=== PATIENT | female | born 1985 | race Caucasian/White ===

== ENCOUNTER 2016-07-25 20:37 | Emergency (ER) | payer MEDICAID, OTHER ==
[2016-07-25 20:50] VITALS: BP 130/59
--- NOTE | 2016-07-25 21:58 | UC ---
Respiratory Complaint HPI - HPI Summary HPI Summary: SEVERAL WEEKS OF SINUS PRESSURE, COUGH, CONGESTION. WAS NOT AWARE OF ELEVATED TEMP. NO N/V/D. ALSO HAS AN ITCHY RASH LEFT UPPER ARM FOR 3 DAYS. HAS BEEN AROUND A LOT OF DOGS RECENTLY. - History of Current Complaint Chief Complaint: UCRespiratory Stated Complaint: SINUS PAIN,CONGESTION,COUGH Time Seen by Provider: 07/25/16 21:47 Hx Obtained From: Patient Hx Last Menstrual Period: 3 WEEKS AGO (HAS IUD) Onset/Duration: Gradual Onset, Lasting Weeks, Still Present Timing: Constant Severity Initially: Moderate Severity Currently: Moderate Pain Intensity: 7 Pain Scale Used: 0-10 Numeric Character: Cough: Nonproductive Aggravating Factors: Nothing Alleviating Factors: Nothing Associated Signs And Symptoms: Positive: URI, Nasal Congestion, Hoarseness, Sinus Discomfort. Negative: Dyspnea, Wheezing, Hemoptysis, Dizziness - Allergies/Home Medications Allergies/Adverse Reactions: Allergies Allergy/AdvReac Type Severity Reaction Status Date / Time No Known Allergies Allergy Verified 07/25/16 20:50 Home Medications: Home Medications Cholecalciferol TAB* [Vitamin D TAB*] 1,000 unit PO DAILY 07/25/16 [History Confirmed 07/25/16] Melatonin PRN 07/25/16 [History] Pseudoephedrine TAB* [Sudafed TAB*] PRN 07/25/16 [History] Vitamin B Complex TAB* [Complex B-100*] 1 tab PO DAILY 07/25/16 [History Confirmed 07/25/16] PMH/Surg Hx/FS Hx/Imm Hx Endocrine History Of: Denies: Diabetes Cardiovascular History Of: Denies: Hypertension, Pacemaker/ICD Respiratory History Of: Reports: Asthma - A CHILD GI/ History Of: Denies: Renal Disease Other History Of: Negative For: Anticoagulant Therapy - Surgical History Surgical History: Yes Surgery Procedure, Year, and Place: EAR TUBES, ADDENOIDECTOMY - Family History Known Family History: Positive: Cardiac Disease - [place] - DAD - Social History Alcohol Use: Occasionally Substance Use Type: Marijuana Substance Use Comment - Amount & Last Used: OCCASIONAL Smoking Status (MU): Current Every Day Smoker Type: Cigarettes Amount Used/How Often: 1/2 PPD Length of Time of Smoking/Using Tobacco: 20 years Have You Smoked in the Last Year: Yes - Immunization History Most Recent Tetanus Shot: unknown Review of Systems Constitutional: Fever Skin: Rash ENT: Ear Ache, Nasal Discharge Respiratory: Cough Cardiovascular: Negative Gastrointestinal: Negative All Other Systems Reviewed And Are Negative: Yes Physical Exam Triage Information Reviewed: Yes Appearance: Well-Appearing, No Pain Distress, Well-Nourished Vital Signs: Initial Vital Signs Temp 100.3 F 07/25/16 20:46 Pulse 85 07/25/16 20:46 Resp 16 07/25/16 20:46 BP 130/59 07/25/16 20:46 Pulse Ox 100 07/25/16 20:46 Vital Signs Reviewed: Yes Eyes: Positive: Conjunctiva Clear ENT: Positive: Hearing grossly normal, Pharynx normal, Other: - LEFT TM NORMAL. RIGHT TM SCLEROTIC Neck: Positive: Supple, Nontender, Enlarged Nodes @ - SPFL CERVICAL LAD Respiratory Exam: Normal Cardiovascular Exam: Normal Abdomen Description: Positive: Soft Musculoskeletal: Positive: No Edema Neurological: Positive: Alert Psychological: Positive: Age Appropriate Behavior Skin: Positive: rashes - PINPOINT PAPULAR RASH POSTERIOR LEFT UPPER ARM UC Diagnostic Evaluation - Laboratory O2 Sat by Pulse Oximetry: 100 Respiratory Course/Dx - Differential Dx/Diagnosis Provider Diagnoses: 1. ACUTE SINUSITIS. 2. CONTACT DERMATITIS Discharge - Discharge Plan Condition: Stable Disposition: HOME Prescriptions: Amoxicillin/Clavulanate TAB* [Augmentin TAB 875*] 875 mg PO BID #19 tab Fluconazole [Diflucan] 1 tab PO ONCE #2 tab Triamcinolone 0.1% CREAM(NF) [Kenalog Cream 0.1%(NF)] 1 applic TOPICAL TID PRN # 1 tube PRN Reason: Itching Patient Education Materials: Contact Dermatitis (ED), Sinusitis (ED) Referrals: Renetta Whiting MD [Primary Care Provider] - If Needed
[2016-07-25] MEDS ORDERED: Amoxicillin/Clavulanate TAB* 875 MG PO ONE ×2 (22:01)
== END 2016-07-25 22:11 | disposition home or self-care (01) ==
LOC: UCEAST 20:37
DX: J01.90 Acute sinusitis, unspecified (principal); L23.81 Allergic contact dermatitis due to animal (cat) (dog) dander; F17.210 Nicotine dependence, cigarettes, uncomplicated
CPT/HCPCS: 99212; A9270-GY; G0463

== ENCOUNTER 2017-12-06 15:37 | Emergency (ER) | payer MEDICAID, OTHER ==
[2017-12-06 15:59] VITALS: BP 116/59
--- NOTE | 2017-12-06 16:03 | UC ---
Skin Complaint HPI - HPI Summary HPI Summary: 32 yo female presents with scattered hives. She tells me that she has had PCN in the past without issue. Two years ago, however, she took amoxicillin and towards the end of the rx developed scattered hives. She tried benadryl and benadryl cream for 2 weeks with no relief. Eventually she was rx'd prednisone po and a steroid cream, which resolved her symptoms. She has not had amoxicillin again until about 1 month ago. Again, around day 5 or 6 of taking amoxicillin she started developing hives - she stopped the amoxicillin and started taking benadryl, but has seen no relief in the last 4 weeks. No getting better or worse. Hives are itchy. Denies fever, chills, sore throat, SOB, chest pain, abdominal pain, n/v. - History of Current Complaint Chief Complaint: UCSkin Time Seen by Provider: 12/06/17 16:03 Stated Complaint: RASH Hx Obtained From: Patient Hx Last Menstrual Period: 11/22/17 Onset/Duration: Sudden Onset Skin Exposure Onset/Duration: Weeks Ago Pain Intensity: 0 Location: Diffuse - Allergy/Home Medications Allergies/Adverse Reactions: Allergies Allergy/AdvReac Type Severity Reaction Status Date / Time No Known Allergies Allergy Verified 12/06/17 16:00 Review of Systems Constitutional: Negative Skin: Rash Eyes: Negative ENT: Negative Respiratory: Negative Cardiovascular: Negative Gastrointestinal: Negative Neurovascular: Negative Neurological: Negative Psychological: Negative All Other Systems Reviewed And Are Negative: Yes PMH/Surg Hx/FS Hx/Imm Hx - Additional Past Medical History Additional PMH: None Previously Healthy: Yes Other History Of: Negative For: Anticoagulant Therapy - Surgical History Surgical History: Yes Surgery Procedure, Year, and Place: EAR TUBES, ADDENOIDECTOMY - Family History Known Family History: Positive: Cardiac Disease - [place] - DAD - Social History Occupation: Employed Full-time Lives: With Family Alcohol Use: Weekly Substance Use Type: Marijuana Substance Use Comment - Amount & Last Used: OCCASIONAL Smoking Status (MU): Heavy Every Day Tobacco Smoker Type: Cigarettes Amount Used/How Often: 1/2 PPD Length of Time of Smoking/Using Tobacco: 20 years Have You Smoked in the Last Year: Yes - Immunization History Most Recent Tetanus Shot: unknown Physical Exam - Summary Physical Exam Summary: GENERAL: NAD. WDWN. No pain distress. SKIN: Scattered hives on b/l arms and legs. No open wounds. No streaking, bleeding, or drainage. NECK: Supple. Nontender. No lymphadenopathy. CHEST: No accessory muscle use. Breathing comfortably and in no distress. CV: Pulses intact NEURO: Alert. CN II-XII grossly intact. PSYCH: Age appropriate behavior. Triage Information Reviewed: Yes Vital Signs: Initial Vital Signs Temp 100.1 F 12/06/17 15:52 Pulse 96 12/06/17 15:52 Resp 16 12/06/17 15:52 BP 116/59 12/06/17 15:52 Pulse Ox 97 12/06/17 15:52 Course/Dx - Course Course Of Treatment: Urticaria - suspect from amoxicillin use. Will rx for prednisone and steroid cream. - Diagnoses Provider Diagnoses: urticaria Discharge - Sign-Out/Discharge Documenting (check all that apply): Patient Departure - Discharge Plan Condition: Stable Disposition: HOME Prescriptions: predniSONE TAB* [Deltasone 20 MG TAB*] 20 mg PO DAILY #11 tab Triamcinolone 0.1% CREAM(NF) [Kenalog Cream 0.1%(NF)] 1 applic TOPICAL BID #1 tube Patient Education Materials: Urticaria (ED) Referrals: Renetta Whiting MD [Primary Care Provider] - Additional Instructions: If you develop a fever, shortness of breath, chest pain, new or worsening symptoms - please call your PCP or go to the ED. - Billing Disposition and Condition Condition: STABLE Disposition: Home
== END 2017-12-06 16:20 | disposition home or self-care (01) ==
LOC: UCEAST 15:37
DX: L50.9 Urticaria, unspecified (principal); Z82.49 Family history of ischemic heart disease and other diseases of the circulatory system; F17.210 Nicotine dependence, cigarettes, uncomplicated
CPT/HCPCS: 99212; G0463

== ENCOUNTER 2018-09-22 21:45 | Emergency (ER) | payer OTHER ==
[2018-09-22 21:56] VITALS: BP 133/74
--- NOTE | 2018-09-22 22:05 | UC ---
Throat Pain/Nasal Jerald HPI - HPI Summary HPI Summary: This patient is a 33-year-old female who presents to the urgent care with chief complaint of sore throat. The patient is been having the symptoms for the last 2 days. She has chills but no fevers. She has no difficulty swallowing and she doesnt have any swelling of the tongue or the lips. She reports that she has had strep pharyngitis in the past and he feels like she is having one now. She has no other complaints - History of Current Complaint Chief Complaint: UCGeneralIllness Stated Complaint: SORE THROAT Time Seen by Provider: 09/22/18 21:47 Hx Obtained From: Patient Hx Last Menstrual Period: 2 weeks Onset/Duration: Gradual Onset Pain Intensity: 8 - Allergies/Home Medications Allergies/Adverse Reactions: Allergies Allergy/AdvReac Type Severity Reaction Status Date / Time No Known Allergies Allergy Verified 09/22/18 21:56 PMH/Surg Hx/FS Hx/Imm Hx Previously Healthy: Yes Other History Of: Negative For: Anticoagulant Therapy - Surgical History Surgical History: Yes Surgery Procedure, Year, and Place: EAR TUBES, ADDENOIDECTOMY - Family History Known Family History: Positive: Cardiac Disease - [place] - DAD - Social History Alcohol Use: Weekly Substance Use Type: Marijuana Substance Use Comment - Amount & Last Used: OCCASIONAL Smoking Status (MU): Heavy Every Day Tobacco Smoker Type: Cigarettes Amount Used/How Often: 1/2 PPD Length of Time of Smoking/Using Tobacco: 20 years Have You Smoked in the Last Year: Yes - Immunization History Most Recent Tetanus Shot: unknown Review of Systems All Other Systems Reviewed And Are Negative: Yes Constitutional: Positive: Chills Skin: Positive: Negative Eyes: Positive: Negative ENT: Positive: Sore Throat Respiratory: Positive: Negative Cardiovascular: Positive: Negative Gastrointestinal: Positive: Negative Genitourinary: Positive: Negative Motor: Positive: Negative Neurovascular: Positive: Negative Musculoskeletal: Positive: Negative Neurological: Positive: Negative Psychological: Positive: Negative Is Patient Immunocompromised?: No Physical Exam - Summary Physical Exam Summary: Vital signs: reviewed General: Patient is comfortable lying in stretcher with no signs of distress HEENT: within normal limits except for swollen tonsils and positive white exudate. Lungs: CTA B/L CVS: S1 & S2 present. No murmurs appreciated. ABDOMEN: Soft, non-tender. No signs of distention. No rebound no guarding, and no masses palpated. Bowel sounds are normal. EXTREMITIES: FROM in all major joints, no edema, no cyanosis or clubbing. NEURO: Alert and oriented x 3. No acute neurological deficits. Speech is normal and follows commands. SKIN: Dry and warm ABDOMEN: Soft, non-tender. No signs of distention. No rebound no guarding, and no masses palpated. Bowel sounds are normal. EXTREMITIES: FROM in all major joints, no edema, no cyanosis or clubbing. NEURO: Alert and oriented x 3. No acute neurological deficits. Speech is normal and follows commands. SKIN: Dry and warm Triage Information Reviewed: Yes Vital Signs: Initial Vital Signs Temp 99.9 F 09/22/18 21:51 Pulse 113 09/22/18 21:51 Resp 17 09/22/18 21:51 BP 133/74 09/22/18 21:51 Pulse Ox 100 09/22/18 21:51 Throat Pain/Nasal Course/Dx - Course Course Of Treatment: Rapid strep positive. The patient will be given a prescription for Augmentin. Patient will be discharged home with follow-up with PCP. - Differential Dx/Diagnosis Provider Diagnosis: Strep pharyngitis Discharge - Sign-Out/Discharge Documenting (check all that apply): Patient Departure All imaging exams completed and their final reports reviewed: No Studies - Discharge Plan Condition: Stable Disposition: HOME Patient Education Materials: Strep Throat (ED) Referrals: Renetta Whiting MD [Primary Care Provider] - Additional Instructions: Take medications as instructed. Follow-up with the primary care physician the next 2 days. Return to the urgent care if symptoms worsen. - Billing Disposition and Condition Condition: STABLE Disposition: Home
[2018-09-22] MEDS ORDERED: Amoxicillin/Clavulanate TAB* 875 MG PO ONE (22:09)
--- NOTE | 2018-09-23 19:28 | UC ---
- Progress Note Progress Note: 09/23/2018 Pt was seen yesterday and Rx Augmentin PO. Pt called back and requested a Rx for Fluconazole PO since she usually gets yeast infection after antibitoic Tx/ A Rx for Fluconazole PO was sent to pharmacy. please call back Pt and inform she can diamond picker Rx. Svetlana Verdugo PA-C Course/Dx - Diagnoses Provider Diagnoses: Strep pharyngitis Discharge - Sign-Out/Discharge Documenting (check all that apply): Post-Discharge Follow Up All imaging exams completed and their final reports reviewed: No Studies - Discharge Plan Condition: Stable Disposition: HOME Prescriptions: Amoxicillin/Clavulanate TAB* [Augmentin TAB 875*] 875 mg PO BID #20 tab Fluconazole 150 MG TAB* [Diflucan 150 MG TAB*] 150 mg PO ED ONCE #1 tablet Patient Education Materials: Strep Throat (ED) Referrals: Renetta Whiting MD [Primary Care Provider] - Additional Instructions: Take medications as instructed. Follow-up with the primary care physician the next 2 days. Return to the urgent care if symptoms worsen. - Billing Disposition and Condition Condition: STABLE Disposition: Home
== END 2018-09-22 22:20 | disposition home or self-care (01) ==
LOC: UCEAST 21:45
DX: J02.0 Streptococcal pharyngitis (principal); F17.210 Nicotine dependence, cigarettes, uncomplicated
CPT/HCPCS: 87651; 99212; A9270-GY; G0463

== ENCOUNTER 2018-10-06 18:03 | Emergency (ER) | payer OTHER ==
[2018-10-06 18:21] VITALS: BP 124/66
--- NOTE | 2018-10-06 18:39 | UC ---
Allergic Reaction HPI - HPI Summary HPI Summary: C/O itching rash starting on the arms and starting to spread. No SOB or throat swelling. Has had rash before with amoxicillin. On amox for strep. - History of Current Complaint Chief Complaint: UCSkin Stated Complaint: HIVES Hx Obtained From: Patient Hx Last Menstrual Period: 10/02/18 ?: No Onset/Duration: Sudden Onset, Lasting Days - 3, Worse Since - today Severity Initially: Mild Severity Currently: Mild Pain Intensity: 0 Location: Diffuse Character: Pruritus Aggravating Factor(s): Nothing Alleviating Factor(s): Nothing Associated Signs And Symptoms: Positive: Rash. Negative: Chest Pain, Cough Wheezing, Diaphoresis, Difficulty Breathing, Hoarseness, Nausea, Syncope, Throat Tightening, Vomiting - Related Hx Possible Reaction To: Medications - amoxicillin - Allergies/Home Medications Allergies/Adverse Reactions: Allergies Allergy/AdvReac Type Severity Reaction Status Date / Time No Known Allergies Allergy Verified 10/06/18 18:17 Home Medications: Home Medications Cetirizine* [ZyrTEC 10 MG TAB*] 10 mg PO DAILY 10/06/18 [History Confirmed 10/06] PMH/Surg Hx/FS Hx/Imm Hx Respiratory History: Asthma Other History Of: Negative For: Anticoagulant Therapy - Surgical History Surgical History: Yes Surgery Procedure, Year, and Place: EAR TUBES, ADDENOIDECTOMY - Family History Known Family History: Positive: Cardiac Disease - [place] - DAD, Other - Cancer - Social History Occupation: Unemployed Lives: With Family Alcohol Use: Occasionally Substance Use Type: None Substance Use Comment - Amount & Last Used: OCCASIONAL Smoking Status (MU): Light Every Day Tobacco Smoker Type: Cigarettes Amount Used/How Often: 1/2 PPD Length of Time of Smoking/Using Tobacco: 20 years Have You Smoked in the Last Year: Yes Cessation Counseling: Patient Advised to Stop - Immunization History Most Recent Tetanus Shot: unknown Review of Systems All Other Systems Reviewed And Are Negative: Yes Skin: Positive: Rash Is Patient Immunocompromised?: No Physical Exam Triage Information Reviewed: Yes Appearance: Well-Appearing, No Pain Distress, Thin Vital Signs: Initial Vital Signs Temp 98.3 F 10/06/18 18:12 Pulse 103 10/06/18 18:12 Resp 16 10/06/18 18:12 BP 124/66 10/06/18 18:12 Vital Signs Reviewed: Yes Eyes: Positive: Conjunctiva Inflamed ENT: Positive: Pharynx normal, TMs normal Neck exam: Normal Respiratory Exam: Normal Cardiovascular Exam: Normal Abdominal Exam: Normal Musculoskeletal Exam: Normal Neurological Exam: Normal Psychological Exam: Normal Skin: Positive: Rashes - erythematous papular rash on the arms with a few spots on the abdomen. Allergic Reaction Course/Dx - Differential Dx/Diagnosis Differential Diagnosis/HQI/PQRI: Anaphylaxis, Erythema Multiforme, Local Allergic Reaction, Urticaria Provider Diagnosis: Penicillin allergy, Allergic reaction caused by a drug Discharge - Sign-Out/Discharge Documenting (check all that apply): Patient Departure All imaging exams completed and their final reports reviewed: No Studies - Discharge Plan Condition: Stable Disposition: HOME Prescriptions: Cefdinir [Cefdinir 300 MG CAP] 300 mg PO BID #10 capsule predniSONE TAB* [Deltasone 20 MG TAB*] 60 mg PO DAILY #18 tab Patient Education Materials: Antibiotic Medication Allergy (ED) Referrals: Renetta Whiting MD [Primary Care Provider] - Additional Instructions: Smoking Cessation Tricks. 1. Cut down by 1 cigarette per day every 2-3 days. Write the number of smokes for that day on the calendar. 2. Identify triggers to smoking: after meals, on the phone, in the car, with coffee, on breaks at work, etc. 3. Formulate a plan with a behavior to replace the smoking. Fireballs in the car , doodle pad on the phone, flavored creamer for the coffee, go for a walk after a meal or on break at work. 4. For stress smokes do deep breathing relaxation. Breath deep in through the nose hold the breath in for a few seconds then breath out slowly through the mouth. - Billing Disposition and Condition Condition: STABLE Disposition: Home
== END 2018-10-06 18:45 | disposition home or self-care (01) ==
LOC: UCEAST 18:03
DX: L27.1 Localized skin eruption due to drugs and medicaments taken internally (principal); T36.0X5A Adverse effect of penicillins, initial encounter; Y92.9 Unspecified place or not applicable; J45.909 Unspecified asthma, uncomplicated; F17.210 Nicotine dependence, cigarettes, uncomplicated
CPT/HCPCS: 99212; G0463

== ENCOUNTER 2018-10-17 11:44 | Emergency (ER) | payer OTHER ==
--- NOTE | 2018-10-17 15:07 | UC ---
Skin Complaint HPI - HPI Summary HPI Summary: 23 yo female presents with hives. She tells me that on 10/06 she was seen for allergic reaction to amoxicillin (hives) and was placed on 60mg of prednisone for 6 days. She completed this, but the hives have not completely gone away. She states she has had this in the past and has required treatment with steroid cream as well. No difficulty breathing, facial/throat swelling. - History of Current Complaint Time Seen by Provider: 10/17/18 15:06 Stated Complaint: HIVES Hx Obtained From: Patient Hx Last Menstrual Period: 10/02/18 Onset/Duration: Sudden Onset Current Severity: None - Allergy/Home Medications Allergies/Adverse Reactions: Allergies Allergy/AdvReac Type Severity Reaction Status Date / Time amoxicillin Allergy Hives Verified 10/17/18 15:01 Home Medications: Home Medications Vitamin B Complex [Super B-50 Complex] 1 tab PO DAILY 10/17/18 [History Confirmed 10/17/18] PMH/Surg Hx/FS Hx/Imm Hx - Additional Past Medical History Additional PMH: Allergies Other History Of: Negative For: Anticoagulant Therapy - Surgical History Surgical History: Yes Surgery Procedure, Year, and Place: EAR TUBES, ADDENOIDECTOMY - Family History Known Family History: Positive: Cardiac Disease - [place] - DAD, Other - Cancer - Social History Lives: With Family Alcohol Use: Occasionally Substance Use Type: None Substance Use Comment - Amount & Last Used: OCCASIONAL Smoking Status (MU): Light Every Day Tobacco Smoker Type: Cigarettes Amount Used/How Often: 1/2 PPD Length of Time of Smoking/Using Tobacco: 20 years Have You Smoked in the Last Year: Yes - Immunization History Most Recent Tetanus Shot: unknown Review of Systems All Other Systems Reviewed And Are Negative: Yes Constitutional: Positive: Negative Skin: Positive: Rash Respiratory: Positive: Negative Cardiovascular: Positive: Negative Neurological: Positive: Negative Psychological: Positive: Negative Physical Exam - Summary Physical Exam Summary: GENERAL: NAD. WDWN. No pain distress. SKIN: Torso, b/l arms, b/l legs with scattered faint urticaria. No edema, warmth , No streaking, bleeding, or drainage. NECK: Supple. Nontender. No lymphadenopathy. CHEST: No accessory muscle use. Breathing comfortably and in no distress. CV: Pulses intact. Cap refill <2seconds NEURO: Alert. PSYCH: Age appropriate behavior. Triage Information Reviewed: Yes Vital Signs: Vital Signs: Temp Pulse Resp BP Pulse Ox 98.8 F 97 18 101/61 100 10/17/18 15:03 10/17/18 15:03 10/17/18 15:03 10/17/18 15:03 10/17/18 15:03 Vital Signs Reviewed: Yes Course/Dx - Course Course Of Treatment: Urticaria. Will rx for a short supply of prednisone in addition to kenalog cream. Advised to take a daily benadryl in addition - Diagnoses Provider Diagnosis: Allergic urticaria Discharge - Sign-Out/Discharge Documenting (check all that apply): Patient Departure All imaging exams completed and their final reports reviewed: No Studies - Discharge Plan Condition: Stable Disposition: HOME Prescriptions: predniSONE TAB* [Deltasone 20 MG TAB*] 20 mg PO DAILY #5 tab Triamcinolone 0.1% CREAM (NF) [Kenalog 0.1% Cream (NF)] 1 applic TOPICAL DAILY # 1 tube Patient Education Materials: Antibiotic Medication Allergy (ED) Referrals: Renetta Whiting MD [Primary Care Provider] - Additional Instructions: If you develop a fever, shortness of breath, chest pain, new or worsening symptoms - please call your PCP or go to the ED immediately. Take a benadryl daily in addition to the prednisone to decrease the reaction - Billing Disposition and Condition Condition: STABLE Disposition: Home
[2018-10-17 15:08] VITALS: BP 101/61
== END 2018-10-17 15:39 | disposition home or self-care (01) ==
LOC: UCEAST 11:44
DX: L50.0 Allergic urticaria (principal); F17.210 Nicotine dependence, cigarettes, uncomplicated; Z88.0 Allergy status to penicillin
CPT/HCPCS: 99212; G0463

== ENCOUNTER 2018-12-14 12:27 | Emergency (ER) | payer OTHER ==
[2018-12-14 12:48] VITALS: BP 119/75
--- NOTE | 2018-12-14 13:11 | UC ---
Ear Complaint HPI - HPI Summary HPI Summary: patient is a 33-year-old female who presents to the urgent care with a chief complaint of left ear pain. She reports that this morning she is knees and since then the patient is having pain. She took one Tylenol or ibuprofen and the symptoms significantly improved. She also reports that she wants a test since the last menstrual cycle it was approximately 4 weeks ago and she cannot find her IUD. She was to schedule to an ultrasound however she was not able to attend. The pain is 1-2 out of 10, no fevers no chills and no other complaints. - History of Current Complaint Chief Complaint: UCEar Stated Complaint: LT EAR PAIN Time Seen by Provider: 12/14/18 12:41 Hx Obtained From: Patient Hx Last Menstrual Period: 3 weeks ago Onset/Duration: Sudden Onset Pain Intensity: 8 - Allergies/Home Medications Allergies/Adverse Reactions: Allergies Allergy/AdvReac Type Severity Reaction Status Date / Time amoxicillin Allergy Hives Verified 12/14/18 12:47 Home Medications: Home Medications Fexofenadine (NF) [Claudine (NF)] 1 tab PO DAILY PRN 12/14/18 [History Confirmed 12/14/18] Ibuprofen 400 mg PO ONCE PRN 12/14/18 [History Confirmed 12/14/18] PMH/Surg Hx/FS Hx/Imm Hx Previously Healthy: Yes Other History Of: Negative For: Anticoagulant Therapy - Surgical History Surgical History: Yes Surgery Procedure, Year, and Place: EAR TUBES, ADDENOIDECTOMY - Family History Known Family History: Positive: Cardiac Disease - [place] - DAD, Other - Cancer - Social History Alcohol Use: Daily Substance Use Type: Marijuana Substance Use Comment - Amount & Last Used: OCCASIONAL Smoking Status (MU): Light Every Day Tobacco Smoker Type: Cigarettes Amount Used/How Often: 1/2 PPD Length of Time of Smoking/Using Tobacco: 20 years Have You Smoked in the Last Year: Yes Household Exposure Type: Cigarettes - Immunization History Most Recent Tetanus Shot: unknown Review of Systems All Other Systems Reviewed And Are Negative: Yes Constitutional: Positive: Negative Skin: Positive: Negative Eyes: Positive: Negative ENT: Positive: Ear Ache Respiratory: Positive: Negative Cardiovascular: Positive: Negative Gastrointestinal: Positive: Negative Genitourinary: Positive: Negative Motor: Positive: Negative Neurovascular: Positive: Negative Musculoskeletal: Positive: Negative Neurological: Positive: Negative Psychological: Positive: Negative Is Patient Immunocompromised?: No Physical Exam - Summary Physical Exam Summary: Vital signs: Reviewed Gen.: Patient is a well developed and nourished female in no acute distress. Patient is sitting comfortably on the stretcher. Head: Normacephalic and atraumatic Eyes: PERRLA, EOMI x2. Ears: Right ear canal and TM WNL Left ear canal and TM WNL Nose Nose with dry mucosa and clear discharge. No sinus tenderness and mouth: no pharyngeal erythema Neck: Supple, no bilateral submandibular and anterior cervical lymphadenopathy. No JVD Lungs: CTA B/L CVS: S1 & S2 present. No murmurs appreciated. ABDOMEN: Soft NT w/ positive BS. EXT: FROM x 4 NEURO: A+O X 3. Triage Information Reviewed: Yes Appearance: Well-Appearing Vital Signs: Initial Vital Signs Temp 100.6 F 12/14/18 12:41 Pulse 96 12/14/18 12:41 Resp 18 12/14/18 12:41 BP 119/75 12/14/18 12:41 Pulse Ox 99 12/14/18 12:41 Vital Signs Reviewed: Yes Ear Complaint Course/Dx - Course Course Of Treatment: test is: Negtive Date ER exam is within normal. Patient is having almost no pain. There is no ear trauma rupture or signs of infection. Therefore I recommend to continue taking Tylenol or ibuprofen for the pain. Patient is hemodynamically stable alert and oriented 3. - Differential Dx/Diagnosis Provider Diagnosis: Earache on left, test negative Discharge - Sign-Out/Discharge Documenting (check all that apply): Patient Departure All imaging exams completed and their final reports reviewed: No Studies - Discharge Plan Condition: Stable Disposition: HOME Patient Education Materials: Earache (ED) Referrals: Renetta Whiting MD [Primary Care Provider] - Additional Instructions: Take medications as instructed Increase your fluid intake F/U with PCP in the next 2-3 days Return to the if symptoms worsen - Billing Disposition and Condition Condition: STABLE Disposition: Home
== END 2018-12-14 14:02 | disposition home or self-care (01) ==
LOC: UCEAST 12:27
DX: H92.02 Otalgia, left ear (principal); F17.210 Nicotine dependence, cigarettes, uncomplicated; Z32.02 Encounter for pregnancy test, result negative
CPT/HCPCS: 81025; 99211; G0463

== ENCOUNTER 2018-12-17 17:43 | Emergency (ER) | payer OTHER ==
--- NOTE | 2018-12-17 18:08 | UC ---
Ear Complaint HPI - HPI Summary HPI Summary: 33 yo female presents with LEFT ear pain. She tells me that she was seen a couple of days ago for the same issue. Since that time she has developed increased pain and has had some drainage from the ear. She has also been having some sinus pain/pressure/congestion - mostly on the left side. She has not been taking anything OTC for her symptoms. No recent swimming. Denies fever, chills, cough, rash. - History of Current Complaint Chief Complaint: UCEar Stated Complaint: LEFT EAR ISSUE Time Seen by Provider: 12/17/18 18:08 Hx Obtained From: Patient Hx Last Menstrual Period: 3 weeks ago Onset/Duration: Gradual Onset Severity Initially: Moderate Severity Currently: Moderate Pain Intensity: 7 Pain Scale Used: 0-10 Numeric - Allergies/Home Medications Allergies/Adverse Reactions: Allergies Allergy/AdvReac Type Severity Reaction Status Date / Time amoxicillin Allergy Hives Verified 12/17/18 18:11 PMH/Surg Hx/FS Hx/Imm Hx - Additional Past Medical History Additional PMH: Seasonal allergies Other History Of: Negative For: Anticoagulant Therapy - Surgical History Surgical History: Yes Surgery Procedure, Year, and Place: EAR TUBES, ADDENOIDECTOMY - Family History Known Family History: Positive: Cardiac Disease - [place] - DAD, Other - Cancer - Social History Lives: With Family Alcohol Use: Daily Substance Use Type: Marijuana Substance Use Comment - Amount & Last Used: OCCASIONAL Smoking Status (MU): Light Every Day Tobacco Smoker Type: Cigarettes Amount Used/How Often: 1/2 PPD Length of Time of Smoking/Using Tobacco: 20 years Have You Smoked in the Last Year: Yes Household Exposure Type: Cigarettes - Immunization History Most Recent Tetanus Shot: unknown Review of Systems All Other Systems Reviewed And Are Negative: Yes Constitutional: Positive: Negative Skin: Positive: Negative Eyes: Positive: Negative ENT: Positive: Ear Ache, Nasal Discharge, Sinus Congestion, Sinus Pain/ Tenderness Respiratory: Positive: Negative Cardiovascular: Positive: Negative Gastrointestinal: Positive: Negative Neurovascular: Positive: Negative Neurological: Positive: Negative Psychological: Positive: Negative Physical Exam - Summary Physical Exam Summary: GENERAL: NAD. WDWN. No pain distress. SKIN: No rashes, sores, lesions, or open wounds. HEENT: Head: AT/NC Eyes: EOM intact. Conjunctiva clear without inflammation or discharge. Ears: Hearing grossly normal. LEFT ear canal with moderate edema and mild yellow/white drainage. TM appears intact. TTP with auricular movement. NTTP mastoid. Right ear and TM WNL. Nose: Nasal mucosa mildly swollen and erythematous without discharge. TTP LEFT maxillary sinus. Positive post nasal drip Throat: Posterior oropharynx without exudates, erythema, or tonsillar enlargement. Uvula midline. NECK: Supple. Nontender. No lymphadenopathy. CHEST: CTAB. No r/r/w. No accessory muscle use. Breathing comfortably and in no distress. CV: RRR. Without m/r/g. Pulses intact. NEURO: Alert. PSYCH: Age appropriate behavior. Triage Information Reviewed: Yes Vital Signs: Vital Signs: Temp Pulse Resp BP Pulse Ox 99.4 F 86 18 103/65 100 12/17/18 18:07 12/17/18 18:07 12/17/18 18:07 12/17/18 18:07 12/17/18 18:07 Vital Signs Reviewed: Yes Ear Complaint Course/Dx - Course Course Of Treatment: Left otitis externa. Sinusitis. Will treat her with ofloxacin and zpak - Differential Dx/Diagnosis Provider Diagnosis: Left otitis externa, Sinusitis Discharge - Sign-Out/Discharge Documenting (check all that apply): Patient Departure All imaging exams completed and their final reports reviewed: No Studies - Discharge Plan Condition: Stable Disposition: HOME Prescriptions: Azithromycin TAB* [Zithromax TAB (Z-MARITZA) 250 mg #6 tabs] 2 tab PO .TODAY, THEN 1 DAILY #1 maritza Ofloxacin 0.3% (Ear Drop)* [Floxin 0.3% OTIC.MICHELLE (Ear Drop)] 5 drop LEFT EAR BID #1 btl Patient Education Materials: Otitis Externa (ED) Referrals: Renetta Whiting MD [Primary Care Provider] - Additional Instructions: If you develop a fever, shortness of breath, chest pain, new or worsening symptoms - please call your PCP or go to the ED immediately. - Billing Disposition and Condition Condition: STABLE Disposition: Home
[2018-12-17 18:10] VITALS: BP 103/65
== END 2018-12-17 18:25 | disposition home or self-care (01) ==
LOC: UCEAST 17:43
DX: H60.92 Unspecified otitis externa, left ear (principal); J32.9 Chronic sinusitis, unspecified; F17.210 Nicotine dependence, cigarettes, uncomplicated
CPT/HCPCS: 99212; G0463

== ENCOUNTER 2019-02-17 19:54 | Emergency (ER) | payer OTHER ==
[2019-02-17 20:07] VITALS: BP 117/75
--- NOTE | 2019-02-17 20:26 | UC ---
- HPI Summary HPI Summary: Patient is a 33yo female presenting with boyfriend for left breast pain x3 weeks that had gradually worsened. She describes it as a dull pain that is constant with intermittent "sharp burning flashes" of pain. She believes she can feel a lump. She denies pain radiation. Denies fever and chills. Denies symptoms of right breast. Denies skin changes. Denies nipple discharge. Denies n /v/d. Denies SOB and chest pain. She states touching the breast exacerbates the pain. Lying down helps alleviate the pain. She denies any breast issues in the past. She has the mirena and has regular periods. LMP was a week and a half ago. She denies any possibility of . She notes intermittent pelvic pain that she wishes to follow up with her PCP for. She also states that she was told over a year ago that the strings of her mirena could not be found and that she should go to the ED but she never went. She said she is unconcerned and that it must still be there because "she would know if it fell out." Denies history of fibrocystic breast disease or fibroadenoma. Denies FHx of breast cancer. - History of Current Complaint Hx Obtained From: Patient Breast Chief Complaint: Pain, Breast, Left, Palpable Lump Onset/Duration: Started Weeks Ago Timing: Constant Breast Pain Aggravating Factors: Palpation Breast Pain Alleviating Factors: Other: - lying down Breast Associated Signs/Symptoms: Negative - Allergy/Home Medications Allergies/Adverse Reactions: Allergies Allergy/AdvReac Type Severity Reaction Status Date / Time amoxicillin Allergy Hives Verified 02/17/19 20:06 Home Medications: Home Medications L.acidoph,Paracasei, B.lactis [Probiotic] 1 each PO DAILY 02/17/19 [History Confirmed 02/17/19] Vitamins* 02/17/19 [History] PMH/Surg Hx/FS Hx/Imm Hx Previously Healthy: Yes Other History Of: Negative For: Anticoagulant Therapy - Surgical History Surgical History: Yes Surgery Procedure, Year, and Place: EAR TUBES, ADDENOIDECTOMY - Family History Known Family History: Positive: Cardiac Disease - [place] - DAD, Other - Cancer - Social History Alcohol Use: Occasionally Substance Use Type: Marijuana Substance Use Comment - Amount & Last Used: OCCASIONAL Smoking Status (MU): Current Every Day Smoker Type: Cigarettes Amount Used/How Often: 1/2 PPD Length of Time of Smoking/Using Tobacco: 20 years Have You Smoked in the Last Year: Yes Household Exposure Type: Cigarettes - Immunization History Most Recent Tetanus Shot: unknown Review of Systems All Other Systems Reviewed And Are Negative: Yes Constitutional: Positive: Negative. Negative: Fever, Chills, Fatigue Skin: Positive: Negative. Negative: Rash, Bruising ENT: Positive: Negative Respiratory: Positive: Negative Cardiovascular: Positive: Negative Gastrointestinal: Positive: Negative Neurovascular: Negative: Decreased Sensation Musculoskeletal: Negative: Edema Neurological: Negative: Headache, Weakness, Paresthesia, Numbness Physical Exam Triage Information Reviewed: Yes Appearance: Well-Appearing, No Pain Distress, Well-Nourished Vital Signs: Initial Vital Signs Temp 98.5 F 02/17/19 19:59 Pulse 108 02/17/19 19:59 Resp 16 02/17/19 19:59 BP 117/75 02/17/19 19:59 Pulse Ox 100 02/17/19 19:59 Eyes: Positive: Conjunctiva Clear ENT: Positive: Hearing grossly normal Neck: Positive: Supple, No Lymphadenopathy, Other: - no axial lymphadenopathy noted Respiratory: Positive: No respiratory distress Neurological: Positive: Alert Psychological: Positive: Age Appropriate Behavior Skin: Positive: Other - no ecchymosis, erythema, warmth, or fluctuance noted of left breast. left nipple without discharge and has similar appearance to right nipple. no distinguishable lump of left breast noted on exam. Breast Pain Course/Dx - Course Course Of Treatment: Patient gave permission for me to speak about her concerns in front of her boyfriend. Discussed with patient that she does not show any outward signs of infection of her breast or skin. I explained to her that she may take ibuprofen as directed and use ice and heat for pain relief. I explained to her that it is difficult to assess the source of her breast pain from the urgent care and that she will need will need follow up as soon as possible with either her PCP or the [facility] referral for further evaluation. A pelvic exam was offered to the patient after she noted possible lost IUD and intermittent pelvic pain, but she declined stating it was not a major concern of hers and that she would rather follow up with her PCP. She denied needing or STI tests. She voiced understanding and agreed to plan. - Diagnoses Provider Diagnoses: Breast pain, left Discharge ED - Sign-Out/Discharge Documenting (check all that apply): Patient Departure All imaging exams completed and their final reports reviewed: No Studies - Discharge Plan Condition: Stable Disposition: HOME Referrals: Renetta Whiting MD [Primary Care Provider] - 7 Days Palomo Mac JR, DO [Doctor of Osteopathy] - As Soon As Possible Additional Instructions: As discussed, you do not show any signs of infection of your breast. You may take ibuprofen as directed for pain relief. It is difficult to assess the source of your breast pain from the urgent care. You will need follow up as soon as possible with either your primary care physician or the [facility] referral as listed below for further evaluation. - Billing Disposition and Condition Condition: STABLE Disposition: Home
== END 2019-02-17 20:39 | disposition home or self-care (01) ==
LOC: UCEAST 19:54
DX: N64.4 Mastodynia (principal); F17.210 Nicotine dependence, cigarettes, uncomplicated
CPT/HCPCS: 99212; G0463

== ENCOUNTER 2019-07-02 17:21 | Emergency (ER) | payer SELFPAY ==
[2019-07-02 20:00] LABS: ABS Basophils 0.1 10^3/ul (0-0.2); ABS Eosinophils 0.1 10^3/ul (0-0.6); ABS Lymphocytes 2.1 10^3/ul (1.0-4.8); ABS Monocytes 1.2 10^3/ul (0-0.8); ABS Neutrophils 8.6 10^3/ul (1.5-7.7); Hematocrit 38 % (35-47); Lymphocyte % 17.1 %; Mean Corpuscular HGB Conc 34 g/dL (31-36); Mean Corpuscular Hemoglobin 32 pg (27-31); Mean Corpuscular Volume 94 fL (80-97); Mean Platelet Volume 6.8 fL (7.4-10.4); Platelet Count 303 10^3/uL (150-450); Red Blood Count 4.05 10^6 /uL (3.70-4.87); Red Cell Distribution Width 13 % (10-15); White Blood Count 12.1 10^3/uL (3.5-10.8)
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
[2019-07-02 20:25] LABS: Albumin 4.3 g/dL (3.2-5.2); Albumin/Globulin Ratio 1.9 (1-3); Calcium 9.1 mg/dL (8.6-10.3); EGFR African American 76.3 (>60); EGFR Non-African American 63.1 (>60); Globulin 2.3 g/dL (2-4); Potassium 3.5 mmol/L (3.5-5.0); Total Bilirubin 0.8 mg/dL (0.2-1.0); Total Protein 6.6 g/dL (6.4-8.9)
[2019-07-02] MEDS ORDERED: Iohexol 300* (CONTRAST) 10 ML SDV IV ONE (20:51)
[2019-07-02 22:07] VITALS: BP 105/63
== END 2019-07-02 22:06 | disposition home or self-care (01) ==
LOC: ED 17:21
DX: S09.90XA Unspecified injury of head, initial encounter (principal); M54.2 Cervicalgia; R07.89 Other chest pain; M25.511 Pain in right shoulder; M79.605 Pain in left leg; T83.32XA Displacement of intrauterine contraceptive device, initial encounter; V43.62XA Car passenger injured in collision with other type car in traffic accident, initial encounter; Y92.410 Unspecified street and highway as the place of occurrence of the external cause; F17.210 Nicotine dependence, cigarettes, uncomplicated; Z88.0 Allergy status to penicillin
CPT/HCPCS: 36415; 70450; 71260; 72125; 74177; 80053; 85025; 99282; Q9967

== ENCOUNTER 2019-07-23 05:38 | Day surgery (SDC) | payer OTHER ==
[2019-07-23] MEDS ORDERED: Buffered Lidocaine 1% SYRIN* 1 ML/SYRINGE INTRADERM ONE (06:01)
[2019-07-23] MEDS ORDERED: DOXYcycline IV 200 MG in NS 250 mL *Pre-Op OBGYN IVPB ONE (07:00)
[2019-07-23] MEDS ORDERED: Bupivacaine 0.5% W/EPI SDV* 30 ML VIAL ONE (07:13)
[2019-07-23] MEDS ORDERED: Propofol* 10 MG/ML 20 ML BTL ONE (07:33)
[2019-07-23] MEDS ORDERED: HYDROmorphone INJ1* 1 MG/ML SYRINGE ONE ×2 (07:34→10:03)
[2019-07-23] MEDS ORDERED: Rocuronium* 10 MG/ML VIAL ONE (07:34)
[2019-07-23] MEDS ORDERED: Ondansetron INJ* 2 MG/ML VIAL IV PRN (07:46)
[2019-07-23] MEDS ORDERED: Metoclopramide IV* 5 MG/ML 2 ML VIAL IV PRN (07:46)
[2019-07-23] MEDS ORDERED: Naloxone* 0.4 MG/ML 1 ML VIAL IV PRN (07:46)
[2019-07-23] MEDS ORDERED: Ketorolac INJ* 30 MG/ML 1 ML VIAL ONE (09:27)
[2019-07-23] MEDS ORDERED: Sugammadex * 200 MG/2 ML VIAL IV PUSH ONE (09:27)
[2019-07-23] MEDS ORDERED: Ondansetron INJ* 2 MG/ML VIAL ONE ×2 (09:27→10:11)
[2019-07-23] MEDS ORDERED: Dexamethasone IV* 4 MG/ML 1 ML (4 MG) ONE (09:27)
[2019-07-23] MEDS ORDERED: oxyCODONE/Acetamin 5/325 MG* TAB PO PRN (09:50)
[2019-07-23] MEDS ORDERED: Ibuprofen TAB* 600 MG PO PRN (09:50)
[2019-07-23] MEDS ORDERED: Lactated Ringers 1000 ML Bag* 1,000 ML IV SCH (10:00)
[2019-07-23] MEDS ORDERED: Metoclopramide IV* 5 MG/ML 2 ML VIAL ONE (10:03)
[2019-07-23] MEDS: HYDROmorphone INJ1* 1 MG/ML SYRINGE IV PRN ×4 (10:04→10:35)
[2019-07-23] MEDS ORDERED: oxyCODONE/Acetamin 5/325 MG* TAB ONE (10:11)
[2019-07-23 11:41] VITALS: BP 114/62
--- NOTE | 2019-07-24 02:38 | OP ---
CC: [facility]; [facility] * DATE OF OPERATION: 07/23/19 - SDS DATE OF : 81 SURGEON: Triny Beckman MD DISASTER RESPONSE DIRECTOR: Dr. Hunt. ANESTHESIOLOGIST: Dr. Elliott ANESTHESIA: General endotracheal anesthesia. PRE-OP DIAGNOSIS: Embedded intrauterine device. POST-OP DIAGNOSIS: Embedded intrauterine device. OPERATIVE PROCEDURE: Dilation hysteroscopic, laparoscopy, laparoscopic suture of uterine fundus. FINDINGS: Midline cervix, the cervix prolapses to the level of the introitus with anesthesia, the uterus feels small, the uterus is mobile. There were no adnexal masses palpated. The IUD strings were not visualized or palpated on exam. On hysteroscopy, the IUD strings could be visualized within the endometrium. No portion of the IUD was noted within the endometrium. On laparoscopy, there was approximately 5 mm perforation of the uterine fundus which was not actively bleeding. The remainder of the uterus appeared normal. The adnexa, both ovaries and fallopian tubes appeared normal. The IUD was not visualized within the peritoneum or in the cul-de-sac. Plain film revealed IUD in the pelvis on the left side. COMPLICATIONS: Unable to remove the IUD. COUNTS: Sponge, lap, and needle counts were correct x2. CONDITION: The patient tolerated the procedure well and was brought to recovery room awake and in stable condition. SPECIMENS: There were no specimens. FLUIDS: Per Anesthesia. DRAINS: Singleton catheter 200 cc clear urine. DESCRIPTION OF PROCEDURE: The patient was brought to the operating room after urine test was confirmed to be negative. When anesthesia was found to be adequate, the patient was prepped and draped in the usual sterile fashion in the dorsal lithotomy position. Time-out was performed. Exam under anesthesia was performed. After a Singleton catheter was placed under sterile conditions, the IUD strings were visualized, attempts were made to remove the strings with the operative hysteroscope; however, the strings broke off and no portion of the IUD was visualized within the endometrium, so the IUD could not be removed hysteroscopically. During the hysteroscopy, a perforation was made with the hysteroscope through the fundus of the uterus. On laparoscopy, the 5 mm perforation was visualized directly in the midline of the fundus. There was no active bleeding. For the laparoscopy, lidocaine was infused into the infraumbilical fold. A 5 mm skin incision was made with the scalpel. The fascia was identified and entered and a 5 mm trocar and sleeve were inserted. Insufflation was achieved with CO2 gas with the above findings noted. The decision was made to laparoscopically suture the perforation in the fundus, therefore, 2 additional 5 mm trocars were placed under direct visualization in the right and left lower quadrant. The fundus was sewn with a single figure-of- eight suture of 2-0 Vicryl. Excellent hemostasis was assured. Again, the IUD was not visualized anywhere on laparoscopy. At that point, because it was not visualized hysteroscopically or laparoscopically, a plain film was done intraoperatively to confirm that the IUD was still within the pelvis. A plain film shows the IUD within the pelvis, appears to be uterine on the left side. The IUD must be fully embedded in the myometrium as it could not be identified hysteroscopically or laparoscopically. The 5 mm ports were closed with skin glue. The infraumbilical site was closed with a single 0-Vicryl suture. The fascia was examined and found to be intact. The skin was closed with 4-0 Monocryl and glue was applied. The single-tooth tenaculum was removed from the anterior lip of the cervix. Excellent hemostasis was noted. All instruments were removed from the vagina. Dr. Hunt did the laparoscopic suturing of the uterus and while he was visualizing above with the laparoscope, I was looking with the hysteroscope and grasping the IUD strings that could be visualized in an attempt to remove the IUD, but again the strings broke off and no portion of the IUD was visualized. The patient tolerated the procedure well. Singleton catheter drained 200 cc of clear urine and was removed. At the conclusion of the surgery, the patient was brought to recovery room awake and in stable condition. [id number]/[facility] #: [id number]
== END 2019-07-23 11:47 | disposition home or self-care (01) ==
LOC: OR 05:38
PROVIDERS: ATTEND Obstetrics & Gynecology
DX: T83.32XA Displacement of intrauterine contraceptive device, initial encounter (principal); N99.71 Accidental puncture and laceration of a genitourinary system organ or structure during a genitourinary system procedure; Y76.8 Miscellaneous obstetric and gynecological devices associated with adverse incidents, not elsewhere classified; Y92.9 Unspecified place or not applicable; Z88.0 Allergy status to penicillin; F17.210 Nicotine dependence, cigarettes, uncomplicated; J45.909 Unspecified asthma, uncomplicated
CPT/HCPCS: 72170; 81025; A9270-GY; J1100; J1170; J1885; J2405; J2704; J2765

== ENCOUNTER 2023-03-09 05:05 | Inpatient (IN) ==
[2023-03-09 06:02] LABS: Urine Benzodiazepine Screen None Detected (None Detect); Urine Opiates Screen None Detected (None Detect)
[2023-03-09] MEDS ORDERED: Buffered Lidocaine 1% SYRIN 1 ml INTRADERM ONE (06:24)
[2023-03-09] MEDS ORDERED: Lactated Ringers 1000 ml BAG 1,000 ML IV ONE ×2 (06:24→15:03)
[2023-03-09] MEDS ORDERED: Lidocaine 1% VIAL 10 MG/ML 30 ML VIAL INJ PRN (06:24)
[2023-03-09] MEDS ORDERED: Oxytocin in LR 20,000 MILLI.UNIT/1,000 ML BAG IV SCH (06:25)
[2023-03-09] MEDS: Vancomycin 1,000 MG in NS 0.9% 250 ml 250 ML IVPB SCH ×2 (07:03→18:45)
[2023-03-09 07:13] LABS: ABS Basophils 0.1 10^3/uL (0.0-0.1); ABS Eosinophils 0.1 10^3/uL (0.0-0.5); ABS Lymphocytes 3.2 10^3/uL (1.0-4.8); ABS Monocytes 1.5 10^3/uL (0.0-0.9); ABS Neutrophils 10.1 10^3/uL (1.5-7.6); ABS Nucleated RBC 0.01 10^3/ul; Eosinophil % 0.7 %; Hemoglobin 11.3 g/dL (11.5-14.3); Lymphocyte % 21.6 %; Mean Corpuscular Hemoglobin 31.7 pg (27-33); Mean Corpuscular Hgb Conc 35.2 g/dL (31-36); Mean Corpuscular Volume 90.1 fL (80-97); Mean Platelet Volume 8.1 fL (7.5-11.2); Platelet Count 312 10^3/uL (150-450); Red Blood Count 3.56 10^6/uL (3.63-4.92); Red Cell Distribution Width 14.2 % (12-17)
[2023-03-09] MEDS: Lactated Ringers 1000 ml BAG 1,000 ML IV SCH ×4 (08:55→20:46)
[2023-03-09] MEDS: Nicotine PATCH 14 MG/24 HR PATCH TRANSDERM SCH (10:22)
[2023-03-09] MEDS ORDERED: Bupivacaine 0.25% SDV 30 ML ONE (13:46)
[2023-03-09] MEDS ORDERED: OBEPIDURAL (200 ML) 200 ML EPIDURAL ONE (14:12)
[2023-03-09] MEDS ORDERED: Lidocaine 1.5% EPI 1:200,000 30 ML SDV ONE (14:13)
[2023-03-09] MEDS ORDERED: Phenylephrine 40 mcg/mL 10mL (400mcg) SYRINGE IV PUSH PRN ×2 (15:03)
[2023-03-09] MEDS ORDERED: Sodium Citrate/Citric Acid LIQ 15 ML UDC PO PRN (15:03)
[2023-03-09 15:51] LABS: Urine Appearance Clear; Urine Bilirubin Negative (Negative); Urine Blood Negative (Negative); Urine Color Straw; Urine Glucose Negative (Negative); Urine Ketones Negative (Negative); Urine Nitrite Negative (Negative); Urine Protein Negative (Negative); Urine Specific Gravity 1.005 (1.002-1.030); Urine Urobilinogen Negative (Negative)
[2023-03-09] MEDS ORDERED: OBEPIDURAL (200 ML) 200 ML EPIDURAL SCH (16:00)
[2023-03-09] MEDS ORDERED: Lactated Ringers 1000 ml BAG 1,000 ML IV SCH (16:00)
[2023-03-09] MEDS ORDERED: Clindamycin 900 MG/D5W BAG 900 MG/50 ML BAG IVPB ONE (23:47)
[2023-03-10] MEDS ORDERED: Gentamicin ADULT 250 MG in NS 0.9% 100 ml BAG 100 ML IVPB ONE
[2023-03-10] MEDS ORDERED: Oxytocin 10 UNITS/ML 1 ML VIAL ONE (00:17)
[2023-03-10] MEDS ORDERED: Chloroprocaine 3% 20 ml VIAL ONE (00:17)
[2023-03-10] MEDS ORDERED: Lidocaine 2% w/ EPI 1:200,000 MPF 20 ML SDV VIAL ONE (00:20)
[2023-03-10] MEDS ORDERED: fentaNYL 100 mcg/2 ml 50 MCG/ML VIAL ONE (00:58)
[2023-03-10] MEDS ORDERED: Dexamethasone IV 4 MG/ML VIAL 1 ml VIAL ONE (00:59)
[2023-03-10] MEDS ORDERED: Ondansetron 4 mg VIAL 2 MG/ML 2 ml VIAL ONE (00:59)
[2023-03-10] MEDS ORDERED: Acetaminophen IV 1 GM/100ML 1,000 MG/100 ML BAG IV ONE (01:03)
[2023-03-10] MEDS ORDERED: Methylergonovine 0.2 mg AMPULE 1 ml AMP ONE (01:04)
[2023-03-10] MEDS ORDERED: Morphine PF AMP (0.5MG/ML) 5 MG/10 ML AMP ONE (01:08)
[2023-03-10] MEDS ORDERED: Metoclopramide 5 MG/ML VIAL (10 mg) ONE (01:21)
[2023-03-10] MEDS ORDERED: Naloxone 0.4 mg VIAL 0.4 mg/ml 1 ml VIAL IV PRN (01:41)
[2023-03-10] MEDS ORDERED: Ondansetron 4 mg VIAL 2 MG/ML 2 ml VIAL IV PRN (01:42)
[2023-03-10] MEDS ORDERED: Metoclopramide 5 MG/ML VIAL (10 mg) IV PRN (01:42)
[2023-03-10] MEDS ORDERED: Naloxone 0.4 mg VIAL 0.4 mg/ml 1 ml VIAL IV PUSH PRN (01:42)
[2023-03-10] MEDS ORDERED: Acetaminophen IV 1 GM/100ML 1,000 MG/100 ML BAG IV PRN (01:42)
[2023-03-10] MEDS ORDERED: Methylergonovine 0.2 mg AMPULE 1 ml AMP IM ONE (02:08)
[2023-03-10] MEDS ORDERED: Dibucaine 1% OINT 28.35 GM TUBE PR PRN (02:08)
[2023-03-10] MEDS ORDERED: Witch Hazel PAD JAR TOPICAL PRN (02:08)
[2023-03-10] MEDS ORDERED: Glycerin ADULT 2.4 gm SUPP PR PRN (02:08)
[2023-03-10] MEDS ORDERED: Oxytocin in LR 20,000 MILLI.UNIT/1,000 ML BAG IV SCH (02:10)
[2023-03-10] MEDS ORDERED: Lactated Ringers 1000 ml BAG 1,000 ML IV SCH (03:00)
[2023-03-10] MEDS: Nicotine PATCH 14 MG/24 HR PATCH TRANSDERM SCH (10:13)
[2023-03-11 09:03] LABS: Hematocrit 29.3 % (35-45); Hemoglobin 10.2 g/dL (11.5-14.3); Mean Corpuscular Hemoglobin 31.9 pg (27-33); Mean Corpuscular Volume 91.2 fL (80-97); Mean Platelet Volume 7.6 fL (7.5-11.2); Platelet Count 270 10^3/uL (150-450); Red Blood Count 3.21 10^6/uL (3.63-4.92); Red Cell Distribution Width 13.9 % (12-17); White Blood Count 21.2 10^3/uL (3.8-11.8)
[2023-03-11 10:19] LABS: ABS Basophils 0.1 10^3/uL (0.0-0.1); ABS Eosinophils 0.2 10^3/uL (0.0-0.5); ABS Monocytes 1.7 10^3/uL (0.0-0.9); ABS Neutrophils 16.2 10^3/uL (1.5-7.6); ABS Nucleated RBC 0.01 10^3/ul; Eosinophil % 0.7 %; Lymphocyte % 14.2 %
[2023-03-11] MEDS: Nicotine PATCH 14 MG/24 HR PATCH TRANSDERM SCH (17:19)
[2023-03-12 08:33] VITALS: BP 133/69
[2023-03-12] MEDS: Nicotine PATCH 14 MG/24 HR PATCH TRANSDERM SCH (08:54)
== END 2023-03-12 13:30 | disposition home or self-care (01) | DRG 540 ==
LOC: MCHOBOUT 05:05 → MCHOB 06:25
PROVIDERS: ADMIT Obstetrics & Gynecology; ATTEND Obstetrics & Gynecology

== ENCOUNTER 2024-04-11 05:24 | Observation (INO) ==
[2024-04-11] MEDS ORDERED: Vancomycin 1,250 MG in NS 0.9% 250 ml 250 ML IVPB ONE (05:44)
[2024-04-11] MEDS: NS 0.9% 1000 ml BAG 1,000 ML IV ONE ×2 (05:59→07:34)
[2024-04-11] MEDS: cefTRIAXone 1 gm/50 mL D5W 1 GM/50 ML BAG IV ONE (06:00)
[2024-04-11] MEDS: Ondansetron 4 mg VIAL 2 MG/ML 2 ml VIAL IV ONE (06:01)
[2024-04-11 06:03] LABS: Hematocrit 36.2 % (35-45); Hemoglobin 12.1 g/dL (11.5-14.3); Mean Corpuscular Hemoglobin 29.6 pg (27-33); Mean Corpuscular Hgb Conc 33.3 g/dL (31-36); Mean Platelet Volume 6.6 fL (7.5-11.2); Platelet Count 289 10^3/uL (150-450); Red Blood Count 4.07 10^6/uL (3.63-4.92); Red Cell Distribution Width 13.2 % (12-17); White Blood Count 11.6 10^3/uL (3.8-11.8)
[2024-04-11] MEDS: Vancomycin 1,000 MG - ED ONCE IVPB ONE (06:49)
[2024-04-11 06:54] LABS: C Reactive Protein 98.35 mg/L (<8.01); Calcium 8.9 mg/dL (8.6-10.3); Creatinine, Serum 0.76 mg/dL (0.51-0.95); Potassium 3.4 mmol/L (3.5-5.0); eGFR CKD-EPI 101.5 (>60)
[2024-04-11 07:08] LABS: ABS Eosinophils 0.1 10^3/uL (0.0-0.5); ABS Lymphocytes 1.2 10^3/uL (1.0-4.8); ABS Monocytes 1.2 10^3/uL (0.0-0.9); ABS Neutrophils 9.2 10^3/uL (1.5-7.6); Eosinophil % 0.4 %; Lymphocyte % 9.9 %; RBC Morphology Normal (Normal)
[2024-04-11] MEDS: Morphine 4 MG/ML VIAL (1 ml) IV ONE (07:33)
[2024-04-11 08:44] LABS: Magnesium 1.4 mg/dL (1.9-2.7)
[2024-04-11] MEDS: Lactated Ringers 1000 ml BAG 1,000 ML IV SCH (08:53)
[2024-04-11] MEDS ORDERED: Ondansetron 4 mg VIAL 2 MG/ML 2 ml VIAL IV PRN (08:53)
[2024-04-11] MEDS: KCL 10 MEQ/50 ML IVPREMIX 10 MEQ/50 ML BAG IV SCH (08:54)
[2024-04-11] MEDS ORDERED: Vancomycin per Pharmacy 1 EA NOTE FOLLOW UP SCH (09:00)
[2024-04-11] MEDS: Morphine 2 MG/ML SYRINGE IV PRN ×2 (12:57→18:32)
[2024-04-11] MEDS: Magnesium Sulf 4 GM/100 ML IV 4,000 MG/100 ML BAG IVPB ONE (13:25)
[2024-04-11] MEDS: Acetaminophen IV 1 GM/100ML 1,000 MG/100 ML BAG IV PRN (16:15)
[2024-04-11] MEDS: Vancomycin 1000 MG in NS 0.9% 250 ML IVPB SCH (17:32)
[2024-04-11] MEDS ORDERED: Vancomycin 1000 MG in NS 0.9% 250 ML IVPB SCH (18:00)
[2024-04-12 05:48] LABS: Hemoglobin 11.1 g/dL (11.5-14.3); Mean Corpuscular Hemoglobin 31.4 pg (27-33); Mean Corpuscular Hgb Conc 34.6 g/dL (31-36); Mean Corpuscular Volume 90.6 fL (80-97); Mean Platelet Volume 6.7 fL (7.5-11.2); Platelet Count 227 10^3/uL (150-450); Red Blood Count 3.53 10^6/uL (3.63-4.92); Red Cell Distribution Width 13.3 % (12-17); White Blood Count 9.2 10^3/uL (3.8-11.8)
[2024-04-12 06:34] LABS: Calcium 7.9 mg/dL (8.6-10.3); Creatinine, Serum 0.64 mg/dL (0.51-0.95); Magnesium 1.7 mg/dL (1.9-2.7); Potassium 3.6 mmol/L (3.5-5.0); eGFR CKD-EPI 114.5 (>60)
[2024-04-12] MEDS ORDERED: cefTRIAXone 1 gm/50 mL D5W 1 GM/50 ML BAG IV SCH (08:15)
[2024-04-12] MEDS: KCL 10 MEQ/50 ML IVPREMIX 10 MEQ/50 ML BAG IV SCH (08:16)
[2024-04-12] MEDS: Magnesium Sulfate 2 gm BAG 2 GM/50 ML BAG IVPB ONE (08:17)
[2024-04-12 08:28] LABS: ABS Eosinophils 0.3 10^3/uL (0.0-0.5); ABS Lymphocytes 1.8 10^3/uL (1.0-4.8); ABS Nucleated RBC 0.01 10^3/ul; Lymphocyte % 19.7 %; Nucleated Red Blood Cells % 0.1 %/100WBC (0.0-0.8); RBC Morphology Normal (Normal)
[2024-04-12] MEDS: cefTRIAXone 1 gm/50 mL D5W 1 GM/50 ML BAG IV SCH (12:22)
[2024-04-12] MEDS: Magnesium Sulfate IV 1GM/100ML 1 GM/100 ML BAG IV ONE (13:16)
[2024-04-12 14:29] VITALS: BP 104/60
[2024-04-13] MEDS ORDERED: Vancomycin Trough Check NOTE FOLLOW UP ONE (05:30)
== END 2024-04-12 15:50 | disposition home or self-care (01) ==
LOC: EDHOLD 05:24 → ED 05:24 → MEDTELE 10:30
PROVIDERS: ADMIT Hospitalist; ATTEND Hospitalist